=== PATIENT | female | born 1940 | race Native Hawaiian/Other Pacific Islander ===

== ENCOUNTER → 2016-11-06 | Outpatient (CLI) | payer MEDICARE, OTHER ==
[~2016-11-06] MED LIST: ASPI81TA33 PO; DIPH50CA4 PO; ESOM20CA31 PO; HYDR25TA PO
== END | disposition home or self-care (01) ==
LOC: RADMN 08:45
PROVIDERS: ATTEND Internal Medicine
DX: M47.812 Spondylosis without myelopathy or radiculopathy, cervical region (principal); M48.02 Spinal stenosis, cervical region; M43.12 Spondylolisthesis, cervical region; M25.78 Osteophyte, vertebrae; M46.02 Spinal enthesopathy, cervical region
CPT/HCPCS: 72141

== ENCOUNTER 2024-03-25 13:36 | Emergency (ER) | payer MEDICARE, OTHER ==
[~2024-03-25] VITALS: Ht 177.8 cm; Wt 97.3 kg
[~2024-03-25 13:36] MED LIST changes: -ASPI81TA33 PO; +ASPI81TA87 PO; +DIPH50CA38 PO; -DIPH50CA4 PO; -HYDR25TA PO; +HYDR25TA2 PO
[2024-03-25 13:39] VITALS: BP 164/71; PULSE 59; RESP 16; TEMP 98.1; O2SAT 100
[2024-03-25 14:45] LABS: BASOPHILS % (AUTO) 0.6 % (0.0-2.0); EOSINOPHILS % (AUTO) 1.2 % (1.0-6.0); LYMPHOCYTES # (AUTO) 1.3 K/uL (1.0-4.8); LYMPHOCYTES % (AUTO) 23.5 % (22.0-44.0); MEAN CORPUSCULAR HGB CONC 33.4 G/dL (31.0-37.0); MEAN CORPUSCULAR VOLUME 90 fL (80-100); MONOCYTES # (AUTO) 0.6 K/uL (0.1-1.0); MONOCYTES % (AUTO) 10.8 % (2.0-9.0); NEUTROPHILS # (AUTO) 3.5 K/uL (1.8-7.7); NEUTROPHILS % (AUTO) 63.9 % (40.0-70.0); PLATELET COUNT (AUTO) 131 K/uL (150-450); RED BLOOD CELL COUNT(AUTO) 4.34 MIL/uL (4.00-5.20); WHITE BLOOD COUNT (AUTO) 5.4 K/uL (4.5-11.0)
[2024-03-25 14:56] LABS: ANION GAP 7 mmol/L (8-16); CALCIUM, TOTAL 9.1 mg/dL (8.8-10.5); CARBON DIOXIDE 28 mmol/L (22-29); CHLORIDE 103 mmol/L (98-107); CREATININE 0.86 mg/dL (0.60-1.30); GLOMERULAR FILTR. RATE CALC > 60 mL/min (>60); GLUCOSE,RANDOM 107 mg/dL (70-110); POTASSIUM 3.7 mmol/L (3.5-5.1); SODIUM SERUM 137 mmol/L (136-145); UREA NITROGEN, BLOOD 4 mg/dL (7-18)
[2024-03-25 15:05] LABS: ALANINE AMINOTRANSFERASE 24 U/L (12-78); ALBUMIN 3.3 g/dL (3.4-5.0); ALKALINE PHOSPHATASE 75 U/L (46-116); ASPARTATE AMINOTRANSFERASE 33 U/L (15-37); BILIRUBIN,TOTAL 0.6 mg/dL (0.1-1.0); LIPASE 32 U/L (16-77); TROPONIN I-HIGH SENSITIVITY 15 ng/L (<51)
[2024-03-25] MEDS ORDERED: IOHEXOL 350 MG/ML 100 ML VIAL ONE (15:32)
[2024-03-25] MEDS ORDERED: SODIUM CHLORIDE 0.9% 100 ML ONE (15:32)
[2024-03-25] MEDS: MAGNESIUM SULFATE 2 GM/WATER 50 ML IV ONE (16:12)
[2024-03-25] MEDS: PANTOPRAZOLE SODIUM 40 MG/VIAL IVP ONE (16:58)
== END 2024-03-25 18:12 | disposition home or self-care (01) ==
LOC: EMS 13:39
DX: K21.9 Gastro-esophageal reflux disease without esophagitis (principal); M19.90 Unspecified osteoarthritis, unspecified site; E78.00 Pure hypercholesterolemia, unspecified; I10 Essential (primary) hypertension; Z90.49 Acquired absence of other specified parts of digestive tract; Z90.710 Acquired absence of both cervix and uterus; Z79.899 Other long term (current) drug therapy; Z79.82 Long term (current) use of aspirin
CPT/HCPCS: 99285; 74177; 96365; 96375; 80048; 80076; 83690; 83735; 84484; 85025; 36415; 93005; Q9967; J2470; J7050; J3475

== ENCOUNTER 2024-06-08 13:50 | Emergency (ER) | payer MEDICARE, OTHER ==
[~2024-06-08] VITALS: Ht 175.3 cm; Wt 89.6 kg
[2024-06-08 14:33] LABS: BASOPHILS % (AUTO) 0.6 % (0.0-2.0); EOSINOPHILS % (AUTO) 1.1 % (1.0-6.0); HEMATOCRIT 38.8 % (36-46); HEMOGLOBIN 12.7 g/dL (12.0-16.0); LYMPHOCYTES # (AUTO) 1.4 K/uL (1.0-4.8); MEAN CORPUSCULAR HEMOGLOBIN 29.5 pg (26.0-34.0); MEAN CORPUSCULAR HGB CONC 32.7 G/dL (31.0-37.0); MEAN CORPUSCULAR VOLUME 90 fL (80-100); MONOCYTES # (AUTO) 0.7 K/uL (0.1-1.0); MONOCYTES % (AUTO) 10.1 % (2.0-9.0); NEUTROPHILS # (AUTO) 4.5 K/uL (1.8-7.7); NEUTROPHILS % (AUTO) 67.2 % (40.0-70.0); PLATELET COUNT (AUTO) 230 K/uL (150-450); RED CELL DISTRIBUTION WIDTH 14.3 % (11.5-14.5); WHITE BLOOD COUNT (AUTO) 6.6 K/uL (4.5-11.0)
[2024-06-08 14:49] LABS: ANION GAP 7 mmol/L (8-16); CALCIUM, TOTAL 9.7 mg/dL (8.8-10.5); CARBON DIOXIDE 26 mmol/L (22-29); CHLORIDE 101 mmol/L (98-107); CREATININE 0.74 mg/dL (0.60-1.30); GLOMERULAR FILTR. RATE CALC > 60 mL/min (>60); GLUCOSE,RANDOM 115 mg/dL (70-110); POTASSIUM 3.8 mmol/L (3.5-5.1); SODIUM SERUM 134 mmol/L (136-145); UREA NITROGEN, BLOOD 7 mg/dL (7-18)
[2024-06-08 14:53] LABS: B-TYPE NATRIURETIC PEPTIDE 75 pg/mL (0-100)
[2024-06-08 14:58] LABS: CREATINE KINASE, TOTAL ONLY 88 U/L (26-192); TROPONIN I-HIGH SENSITIVITY 16 ng/L (<51)
[2024-06-08 15:22] VITALS: O2SAT 95
[2024-06-08] MEDS: METOCLOPRAMIDE HCL 10 MG TABLET PO ONE (17:43)
[2024-06-08 17:45] VITALS: BP 180/85; PULSE 68; RESP 24
[2024-06-08] MEDS ORDERED: METO5TAB95 PO (18:59)
== END 2024-06-08 19:21 | disposition home or self-care (01) ==
LOC: EMS 13:51
DX: R42 Dizziness and giddiness (principal); H92.02 Otalgia, left ear; I10 Essential (primary) hypertension; E78.00 Pure hypercholesterolemia, unspecified; Z79.82 Long term (current) use of aspirin; Z90.49 Acquired absence of other specified parts of digestive tract; Z90.710 Acquired absence of both cervix and uterus; Z79.899 Other long term (current) drug therapy
CPT/HCPCS: 71045; 80048; 82550; 82962; 83880; 84484; 85025; 93005; 99285; 36415-L1; 36415-TC